=== PATIENT | female | born 1970 | race Hispanic/Latino ===

== ENCOUNTER 2017-04-11 10:53 | Emergency (ER) | payer MEDICAID ==
[2016-12-23 15:35] VITALS: BMI 34.9
[2017-04-11] MEDS ORDERED: Sodium Chloride 0.9% 1,000 ML IV ONE (11:44)
[2017-04-11] MEDS ORDERED: HYDROmorphone 1 mg/ml ISec IVP ONE (11:44)
[2017-04-11] MEDS ORDERED: DiphenhydrAMINE 50 mg/ml Inj IVP STA (11:44)
[2017-04-12 10:16] LABS: URINE APPEARANCE CLEAR (CLEAR); URINE BILIRUBIN NEGATIVE (NEGATIVE); URINE BLOOD NEGATIVE (NEGATIVE); URINE COLOR STRAW (YELLOW); URINE GLUCOSE (UA) >=1000 mg/dL (NEGATIVE); URINE KETONE NEGATIVE (NEGATIVE); URINE LEUKOCYTE ESTERASE NEGATIVE Leu/uL (NEGATIVE); URINE PROTEIN TRACE mg/dL (<30 mg/dL); URINE UROBILINOGEN 0.2 E.U./dL (<1 E.U./dL)
[2017-04-12 10:21] LABS: URINE RBC NEGATIVE /hpf (0-2)
[2017-04-12 12:27] LABS: HEMATOCRIT 32.3 % (36.0-48.0); MEAN CELL VOLUME 83.9 fL (80.0-105.0); MEAN CORPUSCULAR HEMOGLOBIN 27.8 pg (25.0-35.0); MEAN CORPUSCULAR HGB CONC 33.1 g/dl (31.0-37.0); MEAN PLATELET VOLUME 10.9 fl (7.0-11.0); RED CELL DISTRIBUTION WIDTH 12.6 % (11.5-14.5); WHITE BLOOD COUNT 5.7 10^3/ul (4.5-11.0)
--- NOTE | 2017-04-12 12:37 | US ---
PROCEDURE: Ultrasound of the Kidneys HISTORY: RT FLANK PAIN COMPARISON: 08/08/2016. TECHNIQUE: Sonogram of the kidneys. FINDINGS: RIGHT KIDNEY: Measures: 5.5 X 5.5 X 10.5 Cm. Normal in size, contour and echogenicity. No stone, solid mass lesion or hydronephrosis visualized. LEFT KIDNEY: Measures: 5.4 X 6.5 X 10.1 cm. Normal in size, contour and echogenicity. No stone, solid mass lesion or hydronephrosis visualized. OTHER FINDINGS: None. IMPRESSION: Unremarkable renal sonogram.No significant interval change compared to the prior examination(s).
--- NOTE | 2017-04-12 13:59 | US ---
PROCEDURE: URINARY BLADDER ULTRASOUND HISTORY: FLANK PAIN H/O STONE COMPARISON: None TECHNIQUE: Standard protocol for this study/examination. FINDINGS: Urinary bladder assessment: Prevoid volume: 278.7 ml Postvoid residual: 81.3 ml Intrinsic, mural, perivesical abnormalities: None Ureteral jets: Document bilaterally IMPRESSION: No significant or acute findings to account for/ related to the clinical presentation.
[2017-04-12 14:34] LABS: ALB/GLOB RATIO 1.1 (1.1-1.8); ALKALINE PHOSPHATASE 713 U/L (38-133); ALT/SGPT 59 U/L (7-56); AST/SGOT 80 U/L (15-39); BILIRUBIN,TOTAL 0.7 mg/dL (0.2-1.3); BLOOD UREA NITROGEN 21 mg/dL (7-21); CALCIUM 9.6 mg/dL (8.4-10.5); CARBON DIOXIDE 26 mmol/L (21-33); CHLORIDE 100 mmol/L (98-107); GFR AFRICAN-AMERICAN > 60; GLUCOSE,RANDOM 102 mg/dL (70-110); LIPASE 58 U/L (23-300); POTASSIUM 4.5 mmol/L (3.6-5.0); SODIUM 136 mmol/L (132-148); TOTAL PROTEIN 8.1 g/dL (5.8-8.3)
--- NOTE | 2017-04-12 15:40 | CT ---
PROCEDURE: CT Abdomen and Pelvis without intravenous contrast HISTORY: Right-sided abdominal pain. Relevant surgical history: Prior cholecystectomy, appendectomy, in gastric bypass. COMPARISON: 03/27/2016 hand 08/17/2016. TECHNIQUE: Unenhanced study. Neither oral nor intravenous contrast administered. Sensitivity and specificity for acute inflammatory processes limited by the absence of oral and intravenous contrast. Radiation dose: Total exam DLP = 1009.02 mGy-cm. This CT exam was performed using one or more of the following dose reduction techniques: Automated exposure control, adjustment of the mA and/or kV according to patient size, and/or use of iterative reconstruction technique. FINDINGS: LOWER THORAX: Unremarkable. LIVER: Unremarkable. No gross lesion or ductal dilatation. GALLBLADDER AND BILE DUCTS: Status post cholecystectomy. No abnormality is seen in the gallbladder fossa. PANCREAS: Unremarkable. No gross lesion or ductal dilatation. SPLEEN: Unremarkable. ADRENALS: Unremarkable. No mass. KIDNEYS AND URETERS: Multiple small bilateral nonobstructing calculi none larger than 5 mm. No evidence of hydroureter. No hydronephrosis. No solid mass. VASCULATURE: Unremarkable. No aortic aneurysm. BOWEL: Unremarkable. No obstruction. No gross mural thickening. Postoperative findings related to gastric surgery. No abnormalities at the anastomotic site. APPENDIX: Status post appendectomy PERITONEUM: Unremarkable. No free fluid. No free air. LYMPH NODES: Unremarkable. No enlarged lymph nodes. BLADDER: Unremarkable. REPRODUCTIVE: Unremarkable. BONES: No acute fracture. OTHER FINDINGS: None. IMPRESSION: No acute findings related to/accounting for the clinical presentation. No significant interval change compared to the prior examination(s). Additional benign and/or incidental findings described above. Concordant results (preliminary interpretation) provided by [facility]. Procedure Completed: 18:37. Preliminary ([facility]) Report: Dictated and Authenticated: 19:48. Final Interpretation: 07:33. April 12, 2017.
== END 2017-04-11 22:58 | disposition home or self-care (01) ==
LOC: ED 10:53
DX: K59.00 Constipation, unspecified (principal); N20.0 Calculus of kidney; I10 Essential (primary) hypertension; E11.9 Type 2 diabetes mellitus without complications; Z87.442 Personal history of urinary calculi

== ENCOUNTER 2017-04-26 17:23 | Emergency (ER) | payer MEDICAID ==
[2017-04-26 17:25] VITALS: BMI 34.9
[2017-04-26 17:36] VITALS: RESP 18; TEMP 98
[2017-04-26] MEDS ORDERED: Sodium Chloride 0.9% 1,000 ML IV STA (18:04)
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
[2017-04-26 18:46] LABS: ADD MANUAL DIFF? NO
[2017-04-26 19:04] LABS: BASO # 0.01 K/mm3 (0.0-2.0); BASO % 0.2 % (0.0-3.0); EOS # 0.3 (0.0-0.7); EOS % 4.2 % (1.5-5.0); GRAN # 2.32 (1.4-6.5); HEMATOCRIT 32.9 % (36.0-48.0); LYMPH # 3.5 (1.2-3.4); LYMPH % 55.4 % (22.0-35.0); MEAN CELL VOLUME 81.4 fL (80.0-105.0); MEAN CORPUSCULAR HEMOGLOBIN 27.5 pg (25.0-35.0); MEAN CORPUSCULAR HGB CONC 33.7 g/dl (31.0-37.0); MEAN PLATELET VOLUME 10.8 fl (7.0-11.0); MONO # 0.2 (0.1-0.6); MONO % 3.2 % (1.0-6.0); PLATELET COUNT 282 10^3/uL (120.0-450.0); RED CELL DISTRIBUTION WIDTH 12.7 % (11.5-14.5); WHITE BLOOD COUNT 6.3 10^3/ul (4.5-11.0)
--- NOTE | 2017-04-26 19:05 | CT ---
PROCEDURE: CT Abdomen and Pelvis without intravenous contrast HISTORY: Renal colic COMPARISON: Comparison is made to the previous study dated 04/11/2017 TECHNIQUE: Axial and reformatted coronal and sagittal CT images of the abdomen and pelvis were obtained without IV contrast administration.. Contrast Dose: 0 Radiation dose: Total exam DLP = 1060.92 mGy-cm. This CT exam was performed using one or more of the following dose reduction techniques: Automated exposure control, adjustment of the mA and/or kV according to patient size, and/or use of iterative reconstruction technique. FINDINGS: LOWER THORAX: Unremarkable. LIVER: Mild hepatomegaly GALLBLADDER AND BILE DUCTS: Status post cholecystectomy PANCREAS: Unremarkable. No gross lesion or ductal dilatation. SPLEEN: Unremarkable. ADRENALS: Unremarkable. No mass. KIDNEYS AND URETERS: There are bilateral nonobstructing renal calculi. The largest calculus measures 4 millimeters seen at the right lower pole. There is adjacent 2 millimeter right lower pole calcaneus. There is a 2 millimeter nonobstructing calculus at the lower pole left kidney. VASCULATURE: Unremarkable. No aortic aneurysm. BOWEL: Unremarkable. No obstruction. No gross mural thickening. Status post gastric surgery APPENDIX: Unremarkable. Normal appendix. PERITONEUM: Unremarkable. No free fluid. No free air. LYMPH NODES: Unremarkable. No enlarged lymph nodes. BLADDER: Unremarkable. REPRODUCTIVE: Unremarkable. BONES: No acute fracture. OTHER FINDINGS: None. IMPRESSION: Bilateral small nonobstructing calculi seen at the lower pole larger on the right measures 4 millimeter. No evidence of hydronephrosis or hydroureter. Mild constipation.
[2017-04-26 19:10] LABS: INR 0.86 (0.93-1.08); PARTIAL THROMBOPLASTIN TIME 27.3 Seconds (23.7-30.8)
[2017-04-26 19:11] LABS: URINE APPEARANCE CLEAR (CLEAR); URINE BILIRUBIN NEGATIVE (NEGATIVE); URINE BLOOD NEGATIVE (NEGATIVE); URINE COLOR LIGHT YELLOW (YELLOW); URINE GLUCOSE (UA) >=1000 mg/dL (NEGATIVE); URINE KETONE NEGATIVE (NEGATIVE); URINE LEUKOCYTE ESTERASE NEGATIVE Leu/uL (NEGATIVE); URINE PROTEIN NEGATIVE mg/dL (<30 mg/dL); URINE UROBILINOGEN 0.2 E.U./dL (<1 E.U./dL)
[2017-04-26 19:15] LABS: ALB/GLOB RATIO 1.2 (1.1-1.8); ALKALINE PHOSPHATASE 581 U/L (38-133); ALT/SGPT 47 U/L (7-56); AST/SGOT 52 U/L (15-39); BILIRUBIN,TOTAL 0.3 mg/dL (0.2-1.3); BLOOD UREA NITROGEN 18 mg/dL (7-21); CALCIUM 9.9 mg/dL (8.4-10.5); CARBON DIOXIDE 25 mmol/L (21-33); CHLORIDE 102 mmol/L (98-107); GFR AFRICAN-AMERICAN > 60; GLUCOSE,RANDOM 168 mg/dL (70-110); POTASSIUM 4.3 mmol/L (3.6-5.0); SODIUM 137 mmol/L (132-148); TOTAL PROTEIN 8.1 g/dL (5.8-8.3)
[2017-04-26 20:39] VITALS: BP 139/74; PULSE 97; O2SAT 100
== END 2017-04-26 20:38 | disposition home or self-care (01) ==
LOC: ED 17:23
DX: R10.9 Unspecified abdominal pain (principal); I10 Essential (primary) hypertension; E11.9 Type 2 diabetes mellitus without complications; Z98.84 Bariatric surgery status; Z90.49 Acquired absence of other specified parts of digestive tract
CPT/HCPCS: 74176; 80053; 81003; 85025; 85610; 85730; 87086; 96374; 96375; 99283; J1885; J2405; J7040

== ENCOUNTER 2017-05-28 15:57 | Emergency (ER) | payer MEDICAID ==
[2017-05-28 16:00] VITALS: BMI 35.1
[2017-05-28 16:05] VITALS: TEMP 98.1
[2017-05-28] MEDS ORDERED: Morphine 4 mg/ml ISec IVP STA (16:25)
[2017-05-28] MEDS ORDERED: Sodium Chloride 0.9% 1,000 ML IV STA (16:25)
[2017-05-28] MEDS ORDERED: DiphenhydrAMINE 50 mg/ml Inj IVP STA (16:43)
[2017-05-28] MEDS ORDERED: HYDROmorphone 1 mg/ml ISec IVP STA (16:43)
[2017-05-28 16:52] LABS: BASO # 0.01 K/mm3 (0.0-2.0); BASO % 0.2 % (0.0-3.0); EOS # 0.2 (0.0-0.7); EOS % 3.8 % (1.5-5.0); GRAN # 2.72 (1.4-6.5); GRAN % 44.3 % (50.0-68.0); HEMOGLOBIN 11.2 gm/dL (12.0-16.0); LYMPH # 2.9 (1.2-3.4); LYMPH % 46.6 % (22.0-35.0); MEAN CORPUSCULAR HEMOGLOBIN 27.5 pg (25.0-35.0); MEAN CORPUSCULAR HGB CONC 33.1 g/dl (31.0-37.0); MEAN PLATELET VOLUME 10.3 fl (7.0-11.0); MONO # 0.3 (0.1-0.6); MONO % 5.1 % (1.0-6.0); PLATELET COUNT 291 10^3/uL (120.0-450.0); RBC 4.07 10^6/uL (3.5-6.1); RED CELL DISTRIBUTION WIDTH 13.4 % (11.5-14.5); WHITE BLOOD COUNT 6.1 10^3/ul (4.5-11.0)
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
[2017-05-28 17:05] LABS: ALB/GLOB RATIO 1.1 (1.1-1.8); ALBUMIN 4.3 g/dL (3.0-4.8); ALT/SGPT 50 U/L (7-56); AST/SGOT 59 U/L (15-39); BLOOD UREA NITROGEN 24 mg/dL (7-21); CALCIUM 9.9 mg/dL (8.4-10.5); GFR AFRICAN-AMERICAN > 60; GFR NON-AFRICAN AMERICAN > 60; INR 0.91 (0.93-1.08); LIPASE 64 U/L (23-300); PARTIAL THROMBOPLASTIN TIME 28.5 Seconds (23.7-30.8); PROTHROMBIN TIME 9.8 Seconds (9.9-11.8)
[2017-05-28 17:06] LABS: URINE BILIRUBIN NEGATIVE (NEGATIVE); URINE BLOOD MODERATE (NEGATIVE); URINE GLUCOSE (UA) >=1000 mg/dL (NEGATIVE); URINE LEUKOCYTE ESTERASE NEGATIVE Leu/uL (NEGATIVE); URINE NITRATE NEGATIVE (NEGATIVE); URINE PROTEIN NEGATIVE mg/dL (<30 mg/dL); URINE UROBILINOGEN 0.2 E.U./dL (<1 E.U./dL)
[2017-05-28 17:07] LABS: URINE APPEARANCE CLEAR (CLEAR); URINE COLOR YELLOW (YELLOW)
[2017-05-28 17:28] LABS: URINE WBC 0 - 2 /hpf (0-6)
[2017-05-28 17:32] LABS: URINE BACTERIA FEW (NEG)
[2017-05-28 18:06] VITALS: BP 132/75; PULSE 91; RESP 17; O2SAT 100
== END 2017-05-28 18:06 | disposition home or self-care (01) ==
LOC: ED 15:57
DX: R10.2 Pelvic and perineal pain (principal)
CPT/HCPCS: 80053; 81001; 83690; 85025; 85610; 85730; 87086; 96361; 96374; 96375; 99283; J1170; J1200; J2405; J7040

== ENCOUNTER 2017-07-20 19:18 | Emergency (ER) | payer MEDICAID ==
[2017-07-20 19:19] VITALS: BMI 35.1
[2017-07-20 19:42] VITALS: BP 131/85; PULSE 99; RESP 18; TEMP 97.1; O2SAT 100
[2017-07-20] MEDS ORDERED: DiphenhydrAMINE 50 mg/ml Inj IVP ONE (19:53)
[2017-07-20] MEDS ORDERED: Sodium Chloride 0.9% 1,000 ML IV STA (19:53)
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
[2017-07-20 20:31] LABS: HEMATOCRIT 36.8 % (36.0-48.0); MEAN CELL VOLUME 83.8 fl (80.0-105.0); MEAN CORPUSCULAR HEMOGLOBIN 27.6 pg (25.0-35.0); MEAN CORPUSCULAR HGB CONC 32.9 g/dl (31.0-37.0); MEAN PLATELET VOLUME 10.9 fl (7.0-11.0); RED CELL DISTRIBUTION WIDTH 13.7 % (11.5-14.5)
[2017-07-20 20:40] LABS: ALB/GLOB RATIO 1.2 (1.1-1.8); ALKALINE PHOSPHATASE 593 U/L (38-133); ALT/SGPT 38 U/L (7-56); AST/SGOT 59 U/L (15-39); BILIRUBIN,TOTAL 0.7 mg/dL (0.2-1.3); BLOOD UREA NITROGEN 18 mg/dL (7-21); CALCIUM 10.2 mg/dL (8.4-10.5); CARBON DIOXIDE 26 mmol/L (21-33); CHLORIDE 102 mmol/L (98-107); GFR AFRICAN-AMERICAN > 60; GLUCOSE,RANDOM 120 mg/dL (70-110); INR 0.9 (0.93-1.08); LIPASE 67 U/L (23-300); PARTIAL THROMBOPLASTIN TIME 28.4 Seconds (23.7-30.8); POTASSIUM 4.1 mmol/L (3.6-5.0); SODIUM 141 mmol/L (132-148); TOTAL PROTEIN 8.5 g/dL (5.8-8.3)
[2017-07-20 20:41] LABS: URINE BILIRUBIN NEGATIVE (NEGATIVE); URINE BLOOD TRACE-LYSED (NEGATIVE); URINE GLUCOSE (UA) >=1000 mg/dL (NEGATIVE); URINE KETONE NEGATIVE (NEGATIVE); URINE LEUKOCYTE ESTERASE NEGATIVE Leu/uL (NEGATIVE); URINE PROTEIN TRACE mg/dL (<30 mg/dL); URINE UROBILINOGEN 0.2 E.U./dL (<1 E.U./dL)
[2017-07-20 20:42] LABS: URINE APPEARANCE SLIGHT-CLOUDY (CLEAR); URINE COLOR YELLOW (YELLOW)
[2017-07-20 21:00] LABS: URINE AMORPHOUS SEDIMENT FEW; URINE BACTERIA MOD (NEG); URINE WBC 0 - 2 /hpf (0-6)
[2017-07-20 21:16] LABS: TROPONIN I < 0.01 ng/mL
--- NOTE | 2017-07-20 22:23 | CT ---
EXAM: CT Head Without Intravenous Contrast CLINICAL HISTORY: 46 years old, female; Signs and symptoms; Dizziness; Additional info: Dizzy TECHNIQUE: Axial computed tomography images of the head/brain without intravenous contrast. All CT scans at this facility use one or more dose reduction techniques, viz.: automated exposure control; ma/kV adjustment per patient size (including targeted exams where dose is matched to indication; i.e. head); or iterative reconstruction technique. COMPARISON: No relevant prior studies available. FINDINGS: Brain: No acute intracranial hemorrhage. No significant white matter disease. No edema. Ventricles: No significant ventriculomegaly. Bones: No acute displaced fracture. Sinuses: Unremarkable as visualized. No acute sinusitis. Mastoid air cells: Unremarkable as visualized. No mastoid effusion. IMPRESSION: No acute intracranial hemorrhage, or suspicious mass effect.
--- NOTE | 2017-07-21 12:56 | RAD ---
HISTORY: dizzy COMPARISON: Comparison made with chest radiograph 12/23/2016 the the FINDINGS: LUNGS: No active pulmonary disease. PLEURA: No significant pleural effusion identified, no pneumothorax apparent. CARDIOVASCULAR: Normal. OSSEOUS STRUCTURES: No significant abnormalities. VISUALIZED UPPER ABDOMEN: Normal. OTHER FINDINGS: None. IMPRESSION: No active disease.
--- NOTE | 2017-07-21 21:11 | CARD ---
APPROVED REPORT EKG Measurement Heart [id number] 142P56 [id number] <Conclusion> Poor data quality, interpretation may be adversely affected Normal sinus rhythm Normal ECG
== END 2017-07-20 23:04 | disposition home or self-care (01) ==
LOC: ED 19:18
DX: R42 Dizziness and giddiness (principal); R11.0 Nausea; I10 Essential (primary) hypertension; E11.9 Type 2 diabetes mellitus without complications; K21.9 Gastro-esophageal reflux disease without esophagitis
CPT/HCPCS: 70450; 71010; 80053; 81001; 82550; 82948; 83615; 83690; 84484; 84703; 85027; 85610; 85730; 93005; 96361; 96374; 96375; 99283; J1200; J2765; J7040

== ENCOUNTER 2018-03-04 14:57 | Emergency (ER) | payer MEDICARE, MEDICAID ==
[2018-03-04 14:57] VITALS: BMI 35.1
[2018-03-04 15:24] VITALS: BP 136/116; PULSE 120; RESP 18; TEMP 97.8; O2SAT 99
[2018-03-04] MEDS ORDERED: Sodium Chloride 0.9% 1,000 ML IV STA (15:57)
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
[2018-03-04 16:13] LABS: BASO # 0.04 K/mm3 (0.0-2.0); BASO % 0.5 % (0.0-3.0); EOS # 0.4 (0.0-0.7); EOS % 4.5 % (1.5-5.0); GRAN # 4.02 (1.4-6.5); GRAN % 45.2 % (50.0-68.0); HEMOGLOBIN 10.5 g/dL (12.0-16.0); LYMPH % 44.5 % (22.0-35.0); MEAN CELL VOLUME 82.2 fl (80.0-105.0); MEAN CORPUSCULAR HEMOGLOBIN 26.3 pg (25.0-35.0); MEAN PLATELET VOLUME 10.5 fl (7.0-11.0); MONO # 0.5 (0.1-0.6); MONO % 5.3 % (1.0-6.0); RBC 3.99 10^6/uL (3.5-6.1); RED CELL DISTRIBUTION WIDTH 14.4 % (11.5-14.5); WHITE BLOOD COUNT 8.9 10^3/ul (4.5-11.0)
[2018-03-04 16:27] LABS: ALB/GLOB RATIO 1.1 (1.1-1.8); ALBUMIN 4.3 g/dL (3.0-4.8); CALCIUM 10.2 mg/dL (8.4-10.5)
--- NOTE | 2018-03-04 17:34 | CT ---
PROCEDURE: CT Abdomen and Pelvis without intravenous contrast HISTORY: Severe abdominal and back/flank pain. Negative test (concurrent with this examination). COMPARISON: 05/27/2017 TECHNIQUE: Unenhanced study. Neither oral nor intravenous contrast administered. Radiation dose: Total exam DLP = 1085.09 mGy-cm. This CT exam was performed using one or more of the following dose reduction techniques: Automated exposure control, adjustment of the mA and/or kV according to patient size, and/or use of iterative reconstruction technique. FINDINGS: LOWER THORAX: Unremarkable. LIVER: Unremarkable. No gross lesion or ductal dilatation. GALLBLADDER AND BILE DUCTS: Status post cholecystectomy. No abnormality is seen in the gallbladder fossa. PANCREAS: Unremarkable. No gross lesion or ductal dilatation. SPLEEN: Unremarkable. ADRENALS: Unremarkable. No mass. KIDNEYS AND URETERS: Right kidney in ureter: Mild hydronephrosis, hydroureter secondary to recently passed calculus. Additional nonobstructing calculi in the right kidney none measuring larger than 4 mm. Left kidney: Nonobstructing lower pole calculi none larger than 3 mm. No evidence of left hydroureter or hydronephrosis. VASCULATURE: Unremarkable. No aortic aneurysm. BOWEL: Findings related to prior gastric bypass surgery. APPENDIX: Prior appendectomy. PERITONEUM: Unremarkable. No free fluid. No free air. LYMPH NODES: Unremarkable. No enlarged lymph nodes. BLADDER: Recently passed calculus in the urinary bladder adjacent to the ureterovesical junction. Calculus measures 7 x 5 mm. REPRODUCTIVE: Unremarkable. BONES: No acute fracture. OTHER FINDINGS: None. IMPRESSION: Residual unilateral right hydroureter, hydronephrosis (mild). Bilateral nonobstructing small bilateral renal calculi. Additional benign and/or incidental findings described above.
--- NOTE | 2018-03-05 07:29 | CARD ---
APPROVED REPORT EKG Measurement Heart [id number] ME [id number] <Conclusion> Normal sinus rhythm Electrical artifact present PWNL
== END 2018-03-04 17:30 | disposition left against medical advice (07) ==
LOC: ED 14:57
DX: N20.0 Calculus of kidney (principal); R10.9 Unspecified abdominal pain; Z76.5 Malingerer [conscious simulation]; I10 Essential (primary) hypertension; E11.9 Type 2 diabetes mellitus without complications
CPT/HCPCS: 74176; 80053; 82150; 85025; 93005; 96374; 99282; J1885; J7040

== ENCOUNTER 2018-12-08 09:15 | Outpatient (CLI) | payer MEDICARE, MEDICAID | END 2018-12-08 09:16 | disposition home or self-care (01) | LOC: RAD 09:15 ==